=== PATIENT | male | born 1975 | race Caucasian/White ===

== ENCOUNTER 2024-12-17 12:52 | Emergency (ER) | payer BC, SELFPAY ==
[2024-12-17 13:00] VITALS: BP 131/76
--- NOTE | 2024-12-17 15:42 | ED.GENMED ---
History of Present Illness
General
Chief Complaint: Musculo-Skeletal Complaint
Source: patient
Exam Limitations: none
Time Seen by Provider: 12/17/24 15:10
Nursing documentation reviewed up to this point in time: agreed with
History of Present Illness
History of Present Illness:
Patient is a 49-year-old male who presents to the ER complaint of left posterior rib pain. Patient has had a cough for the past several days and 2 nights ago a volume of bed noticed pain to his left posterior rib area. He complains of pain only
with taking a deep breath. Slight pain with movement. He does not feel short of breath. He denies any fever or chills. He has not taken anything for pain today.
No prior history of DVT PE. No clotting disorders in past no leg pain.
Review of Systems
Review of Systems
Allergies reviewed?: Yes
All Other Systems: ROS reviewed and negative except as documented in HPI and ROS
Constitutional: Reports no symptoms
Respiratory: Reports other (pain to left posterior rib region ); Denies trouble breathing
Cardiac: Reports no symptoms
ABD/GI: Reports no symptoms; Denies abdominal pain, nausea or vomiting
: Reports no symptoms
Musculoskeletal: Reports no symptoms
Skin: Reports no symptoms
Neurological: Reports no symptoms
Psychiatric: Reports no symptoms
Phy Exam
General Physical Exam
General Presentation: no apparent distress
General age: appears stated age
General Skin: warm and dry
General Habitus: normal
General Mental: alert
Cardiovascular Exam
Cardiovascular Exam: regular rate/rhythm, no murmur and normal peripheral pulses
Pulmonary Exam
Pulmonary Exam: lungs clear, no respiratory distress and other (Normal inspection to anterior posterior ribs lungs clear, no crepitus; no bony point tenderness )
Gastrointestinal Exam
Gastrointestinal Exam: non tender and soft
Neurological Exam
Neurological Exam: alert and oriented x3
Musculoskeletal Exam
Musculoskeletal Exam: full ROM
Skin Exam
Skin Exam: normal color and warm/dry
Psychiatric Exam
Psychiatric Exam: normal mood/affect
Course
Orders/Labs/Results
Orders:
Orders
12/17/24 13:05
Ribs, Left 3 View W/PA Chest CR [CR Ribs-left 3 Vw W/pa Chest] Urgent
Comment:
Reason For Exam: pain
12/17/24 15:38
Ibuprofen [Motrin] 600 mg PO NOW STA
Lidocaine [Lidocaine 4% Patch] 1 patch TOPICAL NOW STA
Apply Lidocaine patch(s) to:: left posterior rib area
Vital Signs
Initial and Last Documented VS:
Initial Vital Signs
Temp Pulse Resp BP Pulse Ox
98.9 F 82 18 131/76 100
12/17/24 13:00 12/17/24 13:00 12/17/24 13:00 12/17/24 13:00 12/17/24 13:00
Last Documented Vital Signs
Temp Pulse Resp BP Pulse Ox
98.9 F 71 16 138/81 98
12/17/24 13:00 12/17/24 17:50 12/17/24 17:50 12/17/24 17:50 12/17/24 17:50
MDM/Problems Addressed
Differential Diagnosis Includes:
Not limited to rib fracture, muscle sprain strain.
MDM/Problems Addressed:
Patient has had a cough for the past several days now, the left posterior rib pain. No obvious other trauma. On exam he is in no acute distress no crepitus no obvious bony numbness to the rib normal inspection lungs are clear. Patient is in no
acute distress and is well-appearing nontachycardic nontachypneic nonhypoxic. Patient has pain when he takes a deep breath or sneezes. Likely small rib fracture that is not seen on x-ray versus muscle sprain strain. Patient received ibuprofen
here and feeling some relief along with lidocaine patch here will treat with ibuprofen Tylenol lidocaine patch and close outpatient follow-up. He is to return if any worsening of symptoms.
*Radiology
Radiology exam reviewed: radiology read reviewed
*Pulse Oximetry
Patient hypoxic: no
*Critical Care Note
Total Time (30-74mins, 75-104mins- exclusive of procedures): Not Applicable
ED Attending Note
-
Portions of this chart may have been created with voice recognition software.� Occasional wrong word or��sound alike� substitutions may have occurred due to the inherent limitations of voice recognition software.
Discharge Plan
Departure
Patient Disposition: Home (Routine Discharge)
Date of Disposition: 12/17/24
Time of Disposition: 17:55
Patient with high blood pressure during this ER visit?: Yes
Condition: Fair
Covid-19: Not Applicable
Discharge Problem:
rib pain
Instructions: BLOOD PRESSURE
Prescriptions:
New
lidocaine 5 % adhesive patch,medicated
1 patch topical DAILY Qty: 15 0RF
No Action
multivitamin [One A Day Vitamin] Tablet
1 tab PO DAILY
zinc acetate 25 mg (zinc) Capsule
25 mg PO DAILY
pantoprazole 20 mg Tablet,Delayed Release (Dr/Ec)
20 mg PO DAILY
ascorbic acid (vitamin C) [Vitamin C] 500 mg Tablet
500 mg PO DAILY
cholecalciferol (vitamin D3) [Vitamin D3] 25 mcg (1,000 unit) Tablet
25 mcg PO DAILY
Referrals:
Mack Cedeño MD [Family Provider] -
Activity Restrictions/Additional Instructions:
As discussed there were no obvious fractures on x-ray it is possible that this is a small rib fracture or muscle pain strain. As discussed he may take 600 mg of ibuprofen every 8 hours with food alternate with Tylenol. A prescription for lidocaine
patch was sent to your pharmacy. Follow-up with your family doctor in the next several days. Return if any worsening of symptoms include increased pain shortness of breath or any further concerns.
Interventions
Interventions:
*Risk Screen - Suicide Last Done: 12/17/24 13:05
*General Assessment Last Done: 12/17/24 15:56
*Neglect/Abuse Screening Last Done: 12/17/24 15:56
*ED COVID-19 Vaccine History Last Done: 12/17/24 15:56
ED-Musculoskeletal Assessment Last Done: 12/17/24 15:56
Discharge Date and Time
Print Language: MAORI
[2024-12-17] MEDS: MOTRIN 600 MG PO (15:53)
[2024-12-17] MEDS: LIDOCAINE 4% PATCH 1 PATCH TOPICAL (15:53)
[2024-12-17 15:57] VITALS: BP 135/79
[2024-12-17 17:50] VITALS: BP 138/81
== END 2024-12-17 18:08 | disposition home or self-care (01) ==
LOC: EMR 12:52
PROVIDERS: EMERGENCY PHYSICIAN Student in an Organized Health Care Education/Training Program; FAMILY PHYSICIAN Internal Medicine
DX: R07.81 Pleurodynia (principal); R05.9 Cough, unspecified
CPT/HCPCS: 99283; 71101